=== PATIENT | female | born 1940 | race Caucasian/White ===

== ENCOUNTER 2018-07-05 03:39 | Outpatient (CLI) | payer MEDICARE | END 2018-07-05 23:59 | disposition home or self-care (01) | LOC: DIABETIC 03:39 | PROVIDERS: ATTEND Internal Medicine Cardiovascular Disease | DX: E78.1 Pure hyperglyceridemia (principal); I25.10 Atherosclerotic heart disease of native coronary artery without angina pectoris; K76.0 Fatty (change of) liver, not elsewhere classified | CPT/HCPCS: 97802 ==

== ENCOUNTER 2022-02-09 06:56 | Day surgery (SDC) | payer MEDICARE ==
[2022-02-08 12:13] LABS: BASOPHILS % (AUTO) 0.5 % (0-1); EOSINOPHILS # (AUTO) 0.1 X10'3 (0-0.9); EOSINOPHILS % (AUTO) 0.8 % (0-6); HEMATOCRIT 39.2 % (35.0-45.0); HEMOGLOBIN 13.3 g/dl (12.0-16.0); LYMPHOCYTES # (AUTO) 1.4 X10'3 (1.1-4.8); LYMPHOCYTES % (AUTO) 20.1 % (21-51); MEAN CORPUSCULAR HEMOGLOBIN 31.5 PG (27.0-31.0); MEAN CORPUSCULAR HGB CONC 33.9 g/dL (33.0-36.5); MEAN PLATELET VOLUME 7.4 FL (7.4-10.4); MONOCYTES # (AUTO) 0.6 X10'3 (0-0.9); MONOCYTES % (AUTO) 8.1 % (2-12); NEUTROPHILS % (AUTO) 70.5 % (42-75); PLATELET COUNT 207 X10'3 (140-440); RED BLOOD COUNT 4.22 X10'6 (4.20-5.60); RED CELL DISTRIBUTION WIDTH 13.2 % (11.5-14.5); WHITE BLOOD COUNT 7.1 X10'3 (4.5-11.0)
[2022-02-08 12:25] LABS: APTT 25 SECONDS (22-32)
[2022-02-08 12:39] LABS: ALANINE AMINOTRANSFERASE 53 U/L (12-78); ALBUMIN 3.9 G/DL (3.4-5.0); ALBUMIN/GLOBULIN RATIO 1.2 (1.1-1.5); ALKALINE PHOSPHATASE 40 IU/L (46-116); ANION GAP 10 (8-16); ASPARTATE AMINO TRANSFERASE 29 U/L (10-37); BILIRUBIN,TOTAL 0.6 MG/DL (0.1-1.0); BLOOD UREA NITROGEN 12 MG/DL (7-18); BUN/CREATININE RATIO 14.1 (6.6-38.0); CALCIUM 9.8 MG/DL (8.5-10.1); CHLORIDE 102 MMOL/L (99-107); CREATININE 0.85 MG/DL (0.40-0.90); GLUCOSE 131 MG/DL (70-104); POTASSIUM 3.2 MMOL/L (3.5-5.1); SODIUM 142 MMOL/L (135-145); TOTAL PROTEIN 7.2 G/DL (6.4-8.2); eGFR 64 ML/MIN
[2022-02-09] VITALS (17 sets, daily range): BP systolic 104–165; BP diastolic 45–70
[~2022-02-09] VITALS: Ht 160 cm; Wt 69.2 kg
[2022-02-09] MEDS ORDERED: diphenhydrAMINE 25mg capsule PO PRN (07:10)
[2022-02-09] MEDS ORDERED: LORazepam 0.5 MG tablet PO PRN (07:10)
[2022-02-09] MEDS ORDERED: nitroGLYCERIN 0.4mg SUBLingual tab SL PRN ×2 (07:10→11:25)
[2022-02-09] MEDS ORDERED: normal saline 1,000 ML IV SCH (07:10)
[2022-02-09] MEDS ORDERED: ANAS1TAB10 PO (07:26)
[2022-02-09] MEDS ORDERED: ASPI-920 PO (07:26)
[2022-02-09] MEDS ORDERED: LACT1CAP73 PO (07:26)
[2022-02-09] MEDS ORDERED: CHOL20004 PO (07:26)
[2022-02-09] MEDS ORDERED: NITR0.4T48 SL (07:26)
[2022-02-09] MEDS ORDERED: CHLO25TA10 PO (07:26)
[2022-02-09] MEDS ORDERED: LOSA50TA3 PO (07:26)
[2022-02-09] MEDS ORDERED: ROSU10TA2 PO (07:26)
[2022-02-09] MEDS ORDERED: potassium Cl 20 mEq SR tablet PO PRN ×2 (09:10)
[2022-02-09] MEDS ORDERED: potassium Cl 40MEQ/1/2NS 520ml 520 ML IV PRN ×2 (09:10)
[2022-02-09] MEDS ORDERED: fentaNYL/PF 50MCG/1 ML 2ML syringe ONE (09:28)
[2022-02-09] MEDS ORDERED: LIDOcaine 1% (10mg/ml)w/preservative inj. 20ml MDV ONE (09:28)
[2022-02-09] MEDS ORDERED: midazolam 1 mg/ML 2ml injection ONE (09:28)
[2022-02-09] MEDS ORDERED: iohexol 350MG/ML 100ml bottle IV ONE (09:28)
[2022-02-09] MEDS ORDERED: iohexol 350 MG/ML 50ML vial IV ONE (09:28)
--- NOTE | 2022-02-09 09:45 | NUR ---
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
[2022-02-09] MEDS ORDERED: potassium Cl 20mEq/100mL bag 100 ML IV ONE (10:08)
--- NOTE | 2022-02-09 11:00 | NUR ---
Pt returned from photo lab manager, received report from Shawanda MORA. Mynxx closure device to right groin site, no bleeding, bruising, hematoma or tenderness noted. K+ hanging and started by photo lab manager. Pulses +, cap refill WNL. Phoned daughter Puja and left message re: pt returning from photo lab manager and approx DC time of 1800.
[2022-02-09] MEDS ORDERED: POTASSIUM CL IV PRN (11:15)
[2022-02-09] MEDS ORDERED: 1/2 NS IV PRN (11:15)
--- NOTE | 2022-02-09 11:20 | NUR ---
Pt given sandwich and water bharat well.
[2022-02-09] MEDS ORDERED: proCHLORperazine 10 MG/2 ml inj IV PRN (11:25)
[2022-02-09] MEDS ORDERED: OXAZEpam 15mg capsule PO PRN (11:25)
[2022-02-09] MEDS ORDERED: HYDROcodone/acetaminophen 5mg/325mg tablet PO PRN (11:25)
[2022-02-09] MEDS ORDERED: HYDROcodone/acetaminophen 10/325mg tab PO PRN (11:25)
[2022-02-09] MEDS ORDERED: normal saline 1000ml 1,000 ML IV SCH (11:25)
[2022-02-09] MEDS ORDERED: ondansetron/PF 4mg/2ml inj IV PRN (11:25)
[2022-02-09] MEDS ORDERED: POTASSIUM CL 10 MEQ/100 ML IV PRN (11:42)
--- NOTE | 2022-02-09 12:10 | NUR ---
at bedside, updated with approx DC time. briefly visited with pt then headed home and will return at 1700 for DC instructions and to take pt home.
--- NOTE | 2022-02-09 16:05 | NUR ---
at bedside. VSS, denies pain, Right groin site stable, no bleeding, bruising or hematoma noted.
--- NOTE | 2022-02-09 17:00 | NUR ---
Pt sitting up in bed watching TV and talking with . Right groin site stable. Pt eating half of turkey sandwich and drinking milkshake without issues.
--- NOTE | 2022-02-09 17:15 | NUR ---
Written and verbal DC instructions given to pt and , both verbalize understanding.
--- NOTE | 2022-02-09 17:30 | NUR ---
Pt sat up at EOB, amb to rest room, void in toilet returned to bed, gait steady.
--- NOTE | 2022-02-09 17:45 | NUR ---
PIV DC Cath intact, VSS, denies pain. Right groin site stable. Pt able to dress self without assistance.
--- NOTE | 2022-02-09 18:03 | NUR ---
DC to home with , transferred to private car via WC, pt able to transfer self to car. No C/O right groin pain.
[2022-02-09] MEDS ORDERED: K and/or MAG REPLACEMENT MC SCH (20:00)
[2022-02-24] MEDS ORDERED: ASCO-134 PO (13:38)
[2022-03-03] MEDS ORDERED: LOP12.5T PO (09:21)
[2022-03-03] MEDS ORDERED: HYDR-3972 PO (09:21)
== END 2022-02-09 18:03 | disposition home or self-care (01) ==
LOC: SSTAY O 06:56
PROVIDERS: ATTEND Internal Medicine Cardiovascular Disease
DX: R94.39 Abnormal result of other cardiovascular function study (principal); I25.119 Atherosclerotic heart disease of native coronary artery with unspecified angina pectoris; I10 Essential (primary) hypertension; E78.5 Hyperlipidemia, unspecified; Z79.899 Other long term (current) drug therapy; Z79.01 Long term (current) use of anticoagulants; Z98.890 Other specified postprocedural states; Z88.8 Allergy status to other drugs, medicaments and biological substances
CPT/HCPCS: 36415; 71046; 80053; 84132; 85025; 85610; 85730; 93005; 93458; 99152; 99153; A6258; C1760; C1769; J1644; J2250; J3010; J3480; J3490; J7030; Q0163; Q9967; A4620

== ENCOUNTER 2022-03-11 08:59 | Emergency (ER) | payer MEDICARE ==
[~2022-03-11] VITALS: Ht 165.1 cm; Wt 66.4 kg
[~2022-03-11 08:59] MED LIST: ANAS1TAB10 PO; ASCO-134 PO; ASPI-920 PO; CHLO25TA10 PO; CHOL20004 PO; HYDR-3972 PO; LACT1CAP73 PO; LOP12.5T PO; ROSU10TA2 PO
[2022-03-11] MEDS ORDERED: ondansetron/PF 4mg/2ml inj IV ONE (09:35)
[2022-03-11] MEDS ORDERED: morphine 4 MG/ML inj SYRINge IV ONE (09:35)
[2022-03-11 09:54] LABS: BASOPHILS % (AUTO) 0.3 % (0-1); EOSINOPHILS # (AUTO) 0.1 X10'3 (0-0.9); EOSINOPHILS % (AUTO) 0.4 % (0-6); HEMATOCRIT 31.8 % (35.0-45.0); HEMOGLOBIN 10.7 g/dl (12.0-16.0); LYMPHOCYTES # (AUTO) 0.8 X10'3 (1.1-4.8); LYMPHOCYTES % (AUTO) 6.4 % (21-51); MEAN CORPUSCULAR HEMOGLOBIN 31.9 PG (27.0-31.0); MEAN CORPUSCULAR HGB CONC 33.6 g/dL (33.0-36.5); MEAN CORPUSCULAR VOLUME 94.8 FL (78-98); MEAN PLATELET VOLUME 6.8 FL (7.4-10.4); MONOCYTES # (AUTO) 0.7 X10'3 (0-0.9); MONOCYTES % (AUTO) 5.3 % (2-12); NEUTROPHILS # (AUTO) 11.2 X10'3 (1.8-7.7); NEUTROPHILS % (AUTO) 87.6 % (42-75); PLATELET COUNT 252 X10'3 (140-440); RED BLOOD COUNT 3.35 X10'6 (4.20-5.60); RED CELL DISTRIBUTION WIDTH 13.6 % (11.5-14.5); WHITE BLOOD COUNT 12.8 X10'3 (4.5-11.0)
[2022-03-11 10:08] LABS: ALANINE AMINOTRANSFERASE 147 U/L (12-78); ALBUMIN/GLOBULIN RATIO 0.9 (1.1-1.5); ALKALINE PHOSPHATASE 44 IU/L (46-116); ANION GAP 11 (8-16); ASPARTATE AMINO TRANSFERASE 61 U/L (10-37); BILIRUBIN,TOTAL 0.5 MG/DL (0.1-1.0); BLOOD UREA NITROGEN 14 MG/DL (7-18); BUN/CREATININE RATIO 18.4 (6.6-38.0); CALCIUM 8.9 MG/DL (8.5-10.1); CHLORIDE 105 MMOL/L (99-107); CREATININE 0.76 MG/DL (0.40-0.90); GLUCOSE 134 MG/DL (70-104); SODIUM 139 MMOL/L (135-145); TOTAL CARBON DIOXIDE 22.8 MMOL/L (24-32); TOTAL PROTEIN 6.3 G/DL (6.4-8.2); eGFR 73 ML/MIN
[2022-03-11 13:53] VITALS: BP 133/68
== END 2022-03-11 13:56 | disposition home or self-care (01) ==
LOC: ER 08:59
DX: R07.89 Other chest pain (principal); I25.810 Atherosclerosis of coronary artery bypass graft(s) without angina pectoris; Z95.1 Presence of aortocoronary bypass graft; Z79.899 Other long term (current) drug therapy
CPT/HCPCS: 36415; 71045; 80053; 83880; 84484; 85025; 93005; 93306; 96374; 96375; 99285; J2270; J2405